=== PATIENT | female | born 1990 | race Caucasian/White ===

== ENCOUNTER 2021-06-19 09:20 | Outpatient (CLI) | payer OTHER, SELFPAY ==
--- NOTE | ~2021-06-19 | XR_ITS ---
EXAMINATION: XR chest 2V DATE: 06/19/2021 10:27 INDICATION: Shortness of breath TECHNIQUE: Frontal and lateral views of the chest are obtained COMPARISON: 05/06/2016 FINDINGS: The lungs are free of acute opacities. There is no pleural effusion or pneumothorax. The ca rdiomediastinal silhouette is normal. The visualized bones and soft tissues are unremarkable. IMPRESSION: 1. No acute cardiopulmonary abnormality. Reviewed, dictated and finalized at location A. MS REPRESENTATIVE
--- NOTE | 2021-06-19 09:24 | ECG_ITS ---
Measurements Intervals [place] Rate: 58 P: -33 NE: 121 QRS: 95 QRSD: 92 T: 53 QT: 422 QTc: 417 Interpretive Statements SINUS BRADYCARDIA WITH SHORT NE INTERVAL RIGHT AXIS DEVIATION MINIMAL Q WAVES- INF/LAT LEADS BASELINE ARTIFACT- II, III, AVR, AVL, AVF BORDERLINE ECG Electronically Signed On 06-19-2021 10:21:04 BAG MACHINE HELPER by Yaw Tracy D.O.
[2021-06-19 10:13] LABS: Basophils Absolute Auto 0.01 K/mm3 (0.00-0.10); Basophils Percent Auto 0.2 % (0.0-1.0); Eosinophils Absolute Auto 0.03 K/mm3 (0.02-0.50); Eosinophils Percent Auto 0.5 % (1.0-6.0); Hematocrit 42.9 % (35.0-49.0); Hemoglobin 14.5 g/dL (12.0-15.0); Immature Granulocyte Absolute 0.02 K/mm3 (0.00-0.00); Immature Granulocyte Percent A 0.3 % (0.0-0.0); Lymphocytes Absolute Auto 2.06 K/mm3 (1.10-4.50); Lymphocytes Percent Auto 31.1 % (18.0-42.0); Mean Corpuscular HGB Conc 33.8 g/dL (32.0-36.0); Mean Corpuscular Hemoglobin 33.1 pg (27.0-31.0); Mean Corpuscular Volume 97.9 fL (78.0-102.0); Mean Platelet Volume 10.8 fl (9.2-11.8); Monocytes Absolute Auto 0.46 K/mm3 (0.10-0.90); Monocytes Percent Auto 6.9 % (2.0-11.0); Neutrophils Absolute Auto 4.1 K/mm3 (1.7-7.2); Platelet Count Result 169 K/mm3 (150-420); Red Blood Count 4.38 M/mm3 (4.20-5.40); Red Cell Distribution Width 11.9 % (11.6-14.4); White Blood Count 6.6 K/mm3 (4.8-10.8)
[2021-06-19 10:28] LABS: Alanine Aminotransferase 22 U/L (14-59); Albumin Level 4.2 g/dL (3.4-5.0); Alkaline Phosphatase 45 U/L (46-116); Anion Gap 11 mmol/L (8-16); Aspartate Amino Transferase 16 U/L (15-37); Bilirubin,Total 0.9 mg/dL (0.00-1.00); Blood Urea Nitrogen 13 mg/dL (7-18); Calcium 8.7 mg/dL (8.5-10.1); Carbon Dioxide 25 mmol/L (21-32); Chloride 106 mmol/L (98-108); Estimated Glomerular Filt Rate > 60; Glucose 91 mg/dL (70-99); Osmolality Calculated 294 mOsm/kg (285-295); Potassium 4.1 mmol/L (3.5-5.1); Sodium 142 mmol/L (136-145); Total Protein 7.3 g/dL (6.4-8.2)
== END 2021-06-19 09:21 | disposition home or self-care (01) ==
LOC: CHSIMG 09:24
PROVIDERS: PCP Nurse Practitioner Family; Visit Provider Nurse Practitioner Family
DX: R06.00 Dyspnea, unspecified (principal)
CPT/HCPCS: 36415; 71046; 80053; 85025; 93005

== ENCOUNTER 2021-06-22 11:11 | Outpatient (CLI) | payer OTHER, SELFPAY ==
--- NOTE | 2021-06-23 16:46 | WPDHOLTEREM ---
Holter/Event Monitor Holter/Event Monitor Date of procedure: 06/22/21 Holter/Event Procedure: 24 Hr Holter Monitor Indications: Dyspnea, irregular heart beat Conclusion: 1. 24 hour holter monitor on 06/22/21. 2. Underlying rhythm is sinus rhythm. HR range 40-145 bpm; average HR 67 bpm. 3. There are 6 premature supraventricular complexes. No supraventricular tachycardia. 4. There are 5 premature ventricular complexes. No ventricular tachycardia. 5. No sinoatrial or atrioventricular blocks. There are 2 episodes of pauses greater than 2 seconds, the longest at 2.2 seconds at 03:49 and the other at 2.1 seconds at 06:42. 6. Patient reports symptoms of shortness of breath, chest tightness, fast heart beat which demonstrate sinus rhythm, HR range 60-82 bpm.
== END 2021-06-22 11:12 | disposition home or self-care (01) ==
PROVIDERS: PCP Internal Medicine; Visit Provider Nurse Practitioner Family
DX: R94.31 Abnormal electrocardiogram [ECG] [EKG] (principal); R06.00 Dyspnea, unspecified
CPT/HCPCS: 93225; 93226

== ENCOUNTER 2021-08-04 08:11 | Outpatient (CLI) | payer OTHER, SELFPAY ==
[2021-08-04 09:28] LABS: Cholesterol 180 mg/dL (0-200); HDL Direct 45 mg/dL (40-60); LDL Cholesterol Calculated 123 mg/dL (<130); Triglycerides 58 mg/dL (0-150)
== END 2021-08-04 08:12 | disposition home or self-care (01) ==
LOC: CHSLAB 08:12
PROVIDERS: PCP Nurse Practitioner Family; Visit Provider Internal Medicine Cardiovascular Disease
DX: R06.00 Dyspnea, unspecified (principal)
CPT/HCPCS: 36415; 80061

== ENCOUNTER 2021-08-21 14:32 | Outpatient (CLI) | payer OTHER, SELFPAY ==
--- NOTE | 2021-08-21 14:40 | ECHO_ITS ---
Patient Info Name: Shahnaz Shaikh Age: 31 years : 1990 Gender: Female Ht: 64 in Wt: 125 lbs BSA: 1.60 m2 HR: 62 bpm BP: 105 / 68 mmHg Technical Quality: Good Exam Date: 08/21/2021 2:55 PM Exam Location: [facility] Patient Status: Outpatient Admit Date: 08/21/2021 Staff Ordering Physician: Yaw Tracy DO Drawbench Operator Helper: Mikala Red RDCS Attending Provider: Yaw Tracy DO Referring Physician: Demarcus BERUMEN; Exam Type: CA echo doppler color flow Study Info Indications R06.00 - Dyspnea, unspecified Complete two-dimensional, color flow and Doppler transthoracic echocardiogram is performed. Summary 1. Complete two-dimensional, color flow and Doppler transthoracic echocardiogram is performed. 2. Left ventricular chamber dimension is normal. 3. Left ventricular systolic function is normal, estimated at 60-65%. 4. The left ventricular diastolic function is normal. 5. E/e' 5 is not elevated. 6. Global longitudinal strain is normal at -19.7%. 7. There is mild tricuspid valve regurgitation. 8. No pulmonary hypertension, estimated pulmonary arterial systolic pressure is 23 mmHg. Left Ventricle E/e' 5 is not elevated. Global longitudinal strain is normal at -19.7%. Left ventricular chamber dimension is normal. Left ventricular systolic function is normal, estimated at 60-65%. The left ventricular diastolic function is normal. Right Ventricle Right ventricular chamber dimension is normal. Right ventricular systolic function is normal. Left Atria Left atrial chamber dimension is normal. Right Atria Right atrial chamber dimension is normal. Aortic Valve The aortic valve is trileaflet. There is no aortic valve stenosis. There is no aortic valve regurgitation. Pulmonic Valve There is no pulmonic regurgitation. Mitral Valve There is no mitral valve stenosis. There is no mitral valve regurgitation. Tricuspid Valve There is mild tricuspid valve regurgitation. No pulmonary hypertension, estimated pulmonary arterial systolic pressure is 23 mmHg. Pericardium/Pleural There is no pericardial effusion. Inferior Vena Cava Normal inferior vena cava with >50% collapse upon inspiration consistent with normal right atrial pressure, 5 mmHg. Aorta The aortic root size at the sinus of Valsalva is normal. Left Ventricular Outflow Tract Name Value Normal LVOT 2D LVOT Diameter 2.0 cm LVOT Doppler LVOT Peak Gradient 3 mmHg LVOT Mean Gradient 2 mmHg LVOT VTI 19 cm LVOT VTI/AV VTI Ratio 0.8 LVOT Stroke Volume 59 ml LVOT CO 3.7 l/min LVOT CI 2.3 l/min/m2 Pulmonic Valve Name Value Normal RVOT Doppler RVOT Peak Gradien
== END 2021-08-21 14:33 | disposition home or self-care (01) ==
LOC: ANHCARD 14:34
PROVIDERS: PCP Nurse Practitioner Family; Visit Provider Internal Medicine Cardiovascular Disease
DX: R06.00 Dyspnea, unspecified (principal); I34.0 Nonrheumatic mitral (valve) insufficiency
CPT/HCPCS: 93306

== ENCOUNTER 2021-12-14 13:48 | Outpatient (CLI) | payer OTHER, SELFPAY ==
[2021-12-14 14:02] LABS: Hematocrit 41.2 % (35.0-49.0); Hemoglobin 13.7 g/dL (12.0-15.0); Mean Corpuscular HGB Conc 33.3 g/dL (32.0-36.0); Mean Corpuscular Hemoglobin 33.3 pg (27.0-31.0); Mean Corpuscular Volume 100.2 fL (78.0-102.0); Mean Platelet Volume 10.5 fl (9.2-11.8); Platelet Count Result 147 K/mm3 (150-420); Red Blood Count 4.11 M/mm3 (4.20-5.40); Red Cell Distribution Width 11.9 % (11.6-14.4); White Blood Count 9.2 K/mm3 (4.8-10.8)
[2021-12-14 14:20] LABS: Pregnancy On Board Control Positive; Urine Pregnancy Test Negative
[2021-12-14 14:22] LABS: Alanine Aminotransferase 16 U/L (14-59); Albumin Level 3.9 g/dL (3.4-5.0); Alkaline Phosphatase 44 U/L (46-116); Anion Gap 6 mmol/L (8-16); Aspartate Amino Transferase 10 U/L (15-37); Bilirubin,Total 0.7 mg/dL (0.00-1.00); Blood Urea Nitrogen 10 mg/dL (7-18); Calcium 9.1 mg/dL (8.5-10.1); Carbon Dioxide 28 mmol/L (21-32); Chloride 106 mmol/L (98-108); Estimated Glomerular Filt Rate > 60; Glucose 90 mg/dL (70-99); Lipase 54 U/L (73-393); Osmolality Calculated 289 mOsm/kg (285-295); Potassium 4.4 mmol/L (3.5-5.1); Sodium 140 mmol/L (136-145); Total Protein 7.5 g/dL (6.4-8.2)
[2021-12-14 14:26] LABS: Appearance Urine Clear (Clear); Bilirubin Urine Negative (Negative); Color Urine Light Yellow (Yellow); Glucose Urine UA Negative (Negative); Ketones Urine Negative (Negative); Leukocyte Esterase Ur Negative (Negative); Nitrate Urine Negative (Negative); Protein Urine Negative (Negative); Urobilinogen Urine 0.2 mg/dL (0.2-1.0)
[2021-12-14 14:35] LABS: Add Urine Microscopic? YES; Bacteria Urine None seen /hpf; Blood Urine Trace-Intact (Negative); RBC Urine 0-2 /hpf (0-2); Squamous Epithelial Cell Urine Few /hpf (Few); WBC Urine 0-3 /hpf (0-3)
== END 2021-12-14 13:49 | disposition home or self-care (01) ==
LOC: CHSLAB 13:50
PROVIDERS: PCP Nurse Practitioner Family; Visit Provider Family Medicine
DX: R10.9 Unspecified abdominal pain (principal)
CPT/HCPCS: 36415; 80053; 81001; 81025; 83690; 85027

== ENCOUNTER 2021-12-15 09:35 | Outpatient (CLI) | payer OTHER, SELFPAY ==
--- NOTE | ~2021-12-15 | US_ITS ---
US right upper quadrant INDICATION: Abdomen pain for 4 days PROCEDURE: Realtime right upper abdominal ultrasound. COMPARISON: No prior studies for comparison. FINDINGS: The pancreas is normal without focal mass or pancreatic ductal dilation. Liver echotexture is normal without focal mass or intrahepatic biliary dilatation. There is normal directional flow i n the portal vein. The gallbladder is normal without stones, gallbladder wall thickening or pericholecystic fluid. Comm on bile duct measures 3 mm. No sonographic Penaloza's sign. IMPRESSION: 1: Normal limited abdominal ultrasound. Reviewed, dictated and finalized at location A.
== END 2021-12-15 09:36 | disposition home or self-care (01) ==
LOC: CHSIMG 09:39
PROVIDERS: PCP Nurse Practitioner Family; Visit Provider Family Medicine
DX: R10.9 Unspecified abdominal pain (principal)
CPT/HCPCS: 76705

== ENCOUNTER 2022-02-01 08:57 | Outpatient (CLI) | payer OTHER, SELFPAY ==
[2022-02-01 09:46] LABS: Cholesterol 172 mg/dL (0-200); HDL Direct 48 mg/dL (40-60); LDL Cholesterol Calculated 107 mg/dL (<130); Triglycerides 87 mg/dL (0-150)
[2022-02-01 09:49] LABS: CRP < 0.2 mg/dL (0.0-0.9)
== END 2022-02-01 08:58 | disposition home or self-care (01) ==
LOC: CHSLAB 09:00
PROVIDERS: Family Medicine; PCP Nurse Practitioner Family; Visit Provider Internal Medicine Cardiovascular Disease
DX: R10.9 Unspecified abdominal pain (principal); R59.1 Generalized enlarged lymph nodes
CPT/HCPCS: 36415; 80061; 86140

== ENCOUNTER 2022-02-05 15:10 | Outpatient (CLI) | payer OTHER, SELFPAY ==
--- NOTE | 2022-02-05 15:16 | ECG_ITS ---
Measurements Intervals [place] Rate: 54 P: 48 SC: 139 QRS: 83 QRSD: 88 T: 59 QT: 434 QTc: 413 Interpretive Statements SINUS BRADYCARDIA BORDERLINE ECG Electronically Signed On 02-05-2022 15:31:23 CDT by Yaw Tracy D.O.
== END 2022-02-05 15:11 | disposition home or self-care (01) ==
LOC: CHSIMG 15:12
PROVIDERS: PCP Nurse Practitioner Family; Visit Provider Internal Medicine Cardiovascular Disease
DX: R94.31 Abnormal electrocardiogram [ECG] [EKG] (principal)
CPT/HCPCS: 93005

== ENCOUNTER 2022-02-06 13:17 | Outpatient (CLI) | payer OTHER, SELFPAY ==
[2022-02-06 14:24] LABS: SARS-CoV-2 RNA PCR Negative (Negative)
== END 2022-02-06 13:18 | disposition home or self-care (01) ==
LOC: CHSLAB 13:27
PROVIDERS: PCP Nurse Practitioner Family
DX: Z01.818 Encounter for other preprocedural examination (principal); Z20.822 Contact with and (suspected) exposure to COVID-19
CPT/HCPCS: C9803; U0003; U0005

== ENCOUNTER 2022-05-25 08:04 | Outpatient (CLI) | payer OTHER, SELFPAY ==
--- NOTE | ~2022-05-25 | US_ITS ---
EXAMINATION: US pelvic complete w TV DATE: 05/25/2022 11:17 INDICATION: Pelvic pain, history of endometrial ablation TECHNIQUE: Multiple transabdominal and endovaginal sonographic images of the pelvis were obtained. COMPARISON: None. FINDINGS: The uterus measures 7.7 x 4.1 x 3.9 cm. The endometrial complex measures 6 mm. The right ov alena measures 3.1 x 2.6 x 2.1 cm. The left ovary measures 2.9 x 2.6 x 1.8 cm. There is normal vascular flow in the ovaries. There is no free fluid in the pelvis. IMPRESSION: 1. No sonographic correlate for the patient's symptoms. Reviewed, dictated and finalized at location B. Y PLAN SALES DIRECTOR
== END 2022-05-25 08:05 | disposition home or self-care (01) ==
LOC: CHSIMG 08:08
PROVIDERS: PCP Nurse Practitioner Family
DX: R10.2 Pelvic and perineal pain (principal)
CPT/HCPCS: 76830; 76856

== ENCOUNTER 2022-08-30 16:53 | Emergency (ER) | payer OTHER, SELFPAY ==
--- NOTE | ~2022-08-30 | XR_ITS ---
XR ankle RT min 3V 08/30/2022 17:14 INDICATION: Right ankle pain PROCEDURE: 4 views right ankle COMPARISON: No prior studies for comparison. FINDINGS: Fracture, dislocation or subluxation is not identified. The soft tissues appear within norm al limits. No foreign bodies are identified. IMPRESSION: 1: NO ACUTE BONE OR JOINT ABNORMALITY IDENTIFIED. Reviewed, dictated and finalized at location A. ORADIOLOGIST
[2022-08-30 17:02] VITALS: BP 125/66; PULSE 73; RESP 16; TEMP 36.8; O2SAT 100
--- NOTE | 2022-08-30 17:02 | ED.LOWEXIN ---
HPI - Extremity Injury (Lower) General Chief Complaint: Extremity Injury, Lower Stated Complaint: R ANKLE INJURY Time Seen by Provider: 08/30/22 17:02 Source: patient and RN notes reviewed History of Present Illness HPI Narrative: Patient is a 32-year-old female presents to urgent care with complaints of right ankle pain. Patient states that on August 19 she was jumping on a trampoline and landed wrong. Patient states she is now having issues with ambulation. Patient states that most specifically when she has pressure to her instep she feels the pain into the ankle. Patient has been taking Tylenol and then the elevated. No other acute complaints. No acute distress noted. Patient aware of the plan of care. Some parts of this dictation were generated by voice recognition software and may contain typographical and/or grammatical inaccuracies. Related Data Home Medications Medication Instructions Recorded Confirmed buspirone 10 mg tablet 10 mg PO BID 12/14/21 02/05/22 Allergies Allergy/AdvReac Type Severity Reaction Status Date / Time No Known Allergies Allergy Verified 02/05/22 14:54 Review of Systems Review of Systems: CONSTITUTIONAL: Denies fever, chills, or sweats. EYES: Denies visual changes, redness, or discharge. ENT: Denies rhinorrhea, congestion, sore throat, or otalgia. CARDIOVASCULAR: Denies chest pain, palpitations, or edema. RESPIRATORY: Denies cough or dyspnea. GASTROINTESTINAL: Denies abdominal pain, nausea, vomiting, or diarrhea. GENITOURINARY: Denies dysuria or hematuria. SKIN: Denies rash or itching. MUSCULOSKELETAL: Reports of right ankle pain and swelling NEUROLOGIC: Denies headache, numbness, or weakness. All other systems reviewed are negative, except as documented in HPI. [facility], LATER [facility] Past Medical History Medical History Migraine Twisting of colon on long axis Surgical History Surgical History History of mandibular surgery History of tubal ligation Social History Social History Social History: quit 13 years ago, 1.5 PPD x 4 years prior Smoking packs per day: 1.5 Smoking cigarettes per day: 30.0 Years smoked: 4 Smoking pack-years: 6.00 Smoking status: Former smoker Alcohol intake: current Alcohol use details: social Substance use: current Substance use type: marijuana Living arrangements: with family Additional living arrangements comments: Boyfriend and 2 children Gender identity (if verbalized by the patient): Female Comments At the time of my signature, I reviewed and agree with the nursing past medical, surgical, social, and family history. There is no relevant family history pertinent to the patient complaint. Exam Narrative: GENERAL: This is a well-nourished, well-developed patient, in no apparent distress. HEAD: normocephalic, atraumatic. EYES: PERRL. Sclera clear/white. Vision is grossly intact. EARS: External ears normal NOSE: External nose normal with no obvious nasal discharge, nares without redness, no rhinorrhea. THROAT: Mucous membranes moist NECK: Neck supple SKIN: warm, intact with no suspicious lesions or rash, good texture and turgor. NEURO: awake, alert, and oriented to person, place and time. There were no obvious focal neurologic abnormalities. EXTREMITIES: Mild edema and tenderness to the medial aspect of the right malleolus. Range of motion within normal limits to right lower extremity. Positive strong right radial pulse with capillary refill less than 2 seconds. Course Course Level of Care: Express Care Visit Vital Signs Vital signs: Vital Signs Temperature 98.2 F 08/30/22 17:02 Pulse Rate 73 08/30/22 17:02 Respiratory Rate 16 08/30/22 17:02 Blood Pressure 125/66 08/30/22 17:02 Pulse Oximetry 100 08/30/22 17:02 Oxygen Delivery Room Air 0
== END 2022-08-30 17:28 | disposition home or self-care (01) ==
PROVIDERS: Emergency Provider Nurse Practitioner Family
DX: S93.401A Sprain of unspecified ligament of right ankle, initial encounter (principal); S96.911A Strain of unspecified muscle and tendon at ankle and foot level, right foot, initial encounter; X50.9XXA Other and unspecified overexertion or strenuous movements or postures, initial encounter; Y93.44 Activity, trampolining; Z87.891 Personal history of nicotine dependence; F12.90 Cannabis use, unspecified, uncomplicated
CPT/HCPCS: 73610; 99213; G0463

== ENCOUNTER 2023-01-07 11:05 | Outpatient (CLI) | payer OTHER, SELFPAY ==
--- NOTE | ~2023-01-07 | XR_ITS ---
EXAMINATION: XR soft tissue neck INDICATION: Lump sensation in the left neck TECHNIQUE: Two views of the neck soft tissues are obtained. COMPARISON: None available FINDINGS: No radiographic correlate is identified for the patient's reported lump sensation of the le ft neck. The neck soft tissues appear unremarkable. There is mild lower cervical spondylosis. The vis ualized portions of the lung apices are unremarkable. IMPRESSION: 1. No radiographic correlate for the patient's symptoms. Consider further evaluation with ultrasound or CT. Reviewed, dictated and finalized at location [] IMPRESSION: 1. No radiographic correlate for the patient's symptoms. Consider further evalu ation with ultrasound or CT.
[2023-01-07 11:28] LABS: Basophils Absolute Auto 0.02 K/mm3 (0.00-0.10); Basophils Percent Auto 0.4 % (0.0-1.0); Eosinophils Absolute Auto 0.03 K/mm3 (0.02-0.50); Eosinophils Percent Auto 0.6 % (1.0-6.0); Hematocrit 42.2 % (35.0-49.0); Hemoglobin 14.3 g/dL (12.0-15.0); Immature Granulocyte Absolute 0.02 K/mm3 (0.00-0.00); Immature Granulocyte Percent A 0.4 % (0.0-0.0); Lymphocytes Absolute Auto 2.15 K/mm3 (1.10-4.50); Lymphocytes Percent Auto 40.5 % (18.0-42.0); Mean Corpuscular HGB Conc 33.9 g/dL (32.0-36.0); Mean Corpuscular Hemoglobin 33.6 pg (27.0-31.0); Mean Corpuscular Volume 99.1 fL (78.0-102.0); Mean Platelet Volume 10.4 fl (9.2-11.8); Monocytes Absolute Auto 0.42 K/mm3 (0.10-0.90); Monocytes Percent Auto 7.9 % (2.0-11.0); Neutrophils Absolute Auto 2.7 K/mm3 (1.7-7.2); Neutrophils Percent Auto 50.2 % (50.0-70.0); Platelet Count Result 152 K/mm3 (150-420); Red Blood Count 4.26 M/mm3 (4.20-5.40); Red Cell Distribution Width 11.8 % (11.6-14.4); White Blood Count 5.3 K/mm3 (4.8-10.8)
[2023-01-07 12:42] LABS: Free T4 Free Thyroxine 0.94 ng/dL (0.76-1.46); Thyroid Stimulating Hormone 0.98 uIU/mL (0.36-3.74)
== END 2023-01-07 11:06 | disposition home or self-care (01) ==
LOC: CHSLAB 11:07
PROVIDERS: PCP Nurse Practitioner Family; Visit Provider Nurse Practitioner Family
DX: R53.83 Other fatigue (principal); R22.1 Localized swelling, mass and lump, neck
CPT/HCPCS: 36415; 70360; 84439; 84443; 85025

== ENCOUNTER 2023-04-24 02:46 | Day surgery (SDC) | payer OTHER, SELFPAY ==
[2023-04-12 15:27] VITALS: BMI 20.6
[2023-04-24 11:15] VITALS: BP 102/64; PULSE 61; RESP 16; TEMP 36.4; O2SAT 100
[2023-04-24] MEDS: LACTATED RINGERS 1,000 ML 150 ML IV CONT (11:34)
--- NOTE | 2023-04-24 11:35 | WPDANESEPPF ---
Anes - Initial Pre Proc Eval Procedure: Operation Date: 04/24/23 12:30 Proposed Procedures p Esophagogastroduodenoscopy & Colonoscopy - Lex Cisneros MD Date/Time: 04/24/23 11:35 Surgeon: Lex Cisneros MD Pre Op Diagnosis: GERD, abdominal pain Patient Data Age: 33 Gender: F Height: 1.63 m Weight: 52.8 kg Last Vital Signs Temp 97.5 F L 04/24/23 11:15 Pulse 61 04/24/23 11:15 Resp 16 04/24/23 11:15 BP 102/64 04/24/23 11:15 Pulse Ox 100 04/24/23 11:15 O2 Del Method Room Air 04/24/23 11:15 Allergies Allergy/AdvReac Type Severity Reaction Status Date / Time No Known Allergies Allergy Verified 04/24/23 11:22 Home Medications Medication Instructions Recorded Confirmed Type dicyclomine 20 mg tablet 20 mg PO TID PRN abdominal pain 04/10/23 04/24/23 Rx #90 tabs hydrocortisone 2.5 % topical cream 1 applic RECTAL DAILY PRN 04/10/23 04/24/23 Rx with perineal applicator hemorrhoids #30 grams Patient hx anesthesia problems: none Family hx anesthesia problems: none Results Review: All pre-operative results and documents have been reviewed as part of the pre-operative evaluation. [facility] Past Medical History Medical History Migraine Twisting of colon on long axis Surgical History Surgical History History of mandibular surgery History of tubal ligation Social History Social History Social History: quit 13 years ago, 1.5 PPD x 4 years prior Smoking packs per day: 1.5 Smoking cigarettes per day: 30.0 Years smoked: 4 Smoking pack-years: 6.00 Smoking status: Former smoker Tobacco type: cigarettes Alcohol intake: current Alcohol use details: 2-3X monthly Substance use: current Substance use type: marijuana Last use: Daily Lack of Transportation: No Lack of Food: Never True Current Housing: I Have Housing Concerned About Future Housing: No Difficulty Paying Gas/Electric Bills: No Difficulty Paying for Meds: No Currently Unemployed: No Education: High School Diploma/GED Living arrangements: with family Additional living arrangements comments: Boyfriend and 2 children Gender identity (if verbalized by the patient): Female Spiritual care concerns: No Anes - Eval Final PreProcedure Day of Procedure 04/24/23 11:35 Patient weight: normal Heart: regular rate and rhythm Lungs: clear to auscultation Airway: Mallampati scale class II Neurological: alert and oriented Last oral intake: >/= 8 hours ASA classification: II Emergent: no Anesthetic plan: proceed Anesthesia type and monitoring: general GIVS and standard monitoring Results Review: All pre-operative results and documents have been reviewed as part of the pre-operative evaluation. Informed Consent: The patient's anesthetic plan and its attendant risks and benefits were discussed with the patient/family/POA. Questions were solicited and answers provided to the satisfaction of the patient/family/POA.
--- NOTE | 2023-04-24 12:00 | WPDHPUPDATE1 ---
History and Physical Update Update Date/Time: 04/24/23 12:00 History and Physical has been reviewed, including an updated exam of the patient. There are NO changes in the patient's condition. Risks, benefits, and alternatives have been discussed and questions answered. Patient agrees to proceed with procedure.
[2023-04-24] MEDS: BENZOCAINE (*SP) 60 ML SPRAY CAN (HURRICAINE) 1 SPRAY MUCOUS MEM (12:06)
[2023-04-24 12:29] VITALS: BP 89/51; PULSE 65; RESP 23; O2SAT 96
--- NOTE | 2023-04-24 12:29 | SUR.OPER ---
EGD START 1209, END 1213 COLONOSCOPY START 1217, END 1227
[2023-04-24 12:39] VITALS: BP 121/79; PULSE 120; RESP 24; O2SAT 99
[2023-04-24 12:49] VITALS: BP 101/80; PULSE 80; RESP 17; O2SAT 100
== END 2023-04-24 12:59 | disposition home or self-care (01) ==
PROVIDERS: PCP Nurse Practitioner Family; Visit Provider Internal Medicine Gastroenterology
PROC: 0DJ08ZZ Inspection of Upper Intestinal Tract, Via Natural or Artificial Opening Endoscopic (ICD-10-PCS; CPT 43235; principal; 2023-04-24 12:30)
DX: R10.9 Unspecified abdominal pain (principal); K21.9 Gastro-esophageal reflux disease without esophagitis; Z87.891 Personal history of nicotine dependence; F12.90 Cannabis use, unspecified, uncomplicated
CPT/HCPCS: 43239; 45378; 88305; J2704; J7120

== ENCOUNTER 2023-06-06 10:18 | Emergency (ER) | payer OTHER, SELFPAY ==
--- NOTE | ~2023-06-06 | XR_ITS ---
EXAMINATION: XR lumbar spine 2-3V DATE: 06/06/2023 11:22 INDICATION: Low back pain TECHNIQUE: Anteroposterior and lateral views of the lumbar spine, and cone-down lateral view of the l umbosacral junction were obtained. COMPARISON: None. FINDINGS: No fracture, dislocation, or subluxation. The vertebral body heights, alignment, and interv ertebral disc spaces are normal. The paravertebral soft tissues are unremarkable. IMPRESSION: 1. No acute osseous abnormality. Reviewed, dictated and finalized at location F. CARE WORKER
[2023-06-06 10:18] VITALS: BP 100/65; PULSE 74; RESP 16; TEMP 36.2; O2SAT 99
--- NOTE | 2023-06-06 10:31 | ED.GENADULT ---
HPI - General Adult General Chief complaint: Back Pain/Injury Stated complaint: back pain Time Seen by Provider: 06/06/23 10:26 History of Present Illness HPI narrative: Shahnaz is a 33F with a history of GERD and IBS that presented to the ED with back pain that started this morning when she woke up. There was no fall or trauma. it is worse with movement and better with rest. No numbness/weakness or loss of bowel/bladder control. The pain is bilateral just superior to her sacrum. Related Data Allergies Allergy/AdvReac Type Severity Reaction Status Date / Time No Known Allergies Allergy Verified 06/06/23 10:28 Review of Systems Review of Systems: All systems reviewed & are unremarkable except as noted in HPI and below PMFSH Past Medical History Medical History Migraine Twisting of colon on long axis Surgical History Surgical History History of mandibular surgery History of tubal ligation Social History Social History Social History: quit 13 years ago, 1.5 PPD x 4 years prior Smoking packs per day: 1.5 Smoking cigarettes per day: 30.0 Years smoked: 4 Smoking pack-years: 6.00 Smoking status: Former smoker Tobacco type: cigarettes Alcohol intake: current Alcohol use details: 2-3X monthly Substance use: current Substance use type: marijuana Last use: Daily Lack of Transportation: No Lack of Food: Never True Current Housing: I Have Housing Concerned About Future Housing: No Difficulty Paying Gas/Electric Bills: No Difficulty Paying for Meds: No Currently Unemployed: No Education: High School Diploma/GED Living arrangements: with family Additional living arrangements comments: Boyfriend and 2 children Gender identity (if verbalized by the patient): Female Spiritual care concerns: No Exam Const: General: cooperative, healthy appearing, comfortable, no acute distress, well developed, alert, awake and Physically active Orientation/consciousness: oriented to person, oriented to place and oriented to time HENMT: Head: normal to inspection, normocephalic and atraumatic Ears: hearing grossly normal bilaterally and external ears normal Face/Nose/Sinus: Normal external nose present Eyes: General: appearance normal, both eyes and all related structures Periorbital: periorbital findings normal Sclera: sclerae normal Pupils: Equal, round and reactive pupils present Neck: Neck: normal visual inspection Chest: Chest palpation & inspection: normal inspection of the chest Resp: Effort & Inspection: normal respiratory effort, able to speak in complete sentences and no respiratory distress Cardio: Jugular venous distension: no JVD Back/Spine/Pelvis: Other: No TTP of the back. Lumbar paraspinal muscles are hypertonic. Pain worse with lumbar flexion. Skin: General skin exam: normal color and no rashes or lesions noted Neuro: General: oriented to person, oriented to place and oriented to time Cranial nerves: Yes Equal, round and reactive pupils present Extrem: General: normal to inspection Course Course Emergency Course: ordered radiographs, UA toradol and cyclobenzaprine EXAMINATION: XR lumbar spine 2-3V DATE: 06/06/2023 11:22 INDICATION: Low back pain TECHNIQUE: Anteroposterior and lateral views of the lumbar spine, and cone-down lateral view of the lumbosacral junction were obtained. COMPARISON: None. FINDINGS: No fracture, dislocation, or subluxation. The vertebral body heights, alignment, and intervertebral disc spaces are normal. The paravertebral soft tissues are unremarkable. IMPRESSION: 1. No acute osseous abnormality. Vital Signs Vital signs: Vital Signs Temperature 97.2 F L 06/06/23 10:18 Pulse Rate 74 06/06/23 10:18 Respiratory Rate 16 06/06/23 10:18 Blood Pressure 100/65 11
[2023-06-06] MEDS: CYCLOBENZAPRINE HCL 10 MG TABLET PO (10:38)
[2023-06-06] MEDS: KETOROLAC 30 MG/ML VIAL (*BKC) IM (10:38)
[2023-06-06 10:57] LABS: Appearance Urine Clear (Clear); Bilirubin Urine Negative (Negative); Blood Urine Trace-Intact (Negative); Color Urine Light Yellow (Yellow); Glucose Urine UA Negative (Negative); Ketones Urine Negative (Negative); Leukocyte Esterase Ur Negative (Negative); Nitrate Urine Negative (Negative); Protein Urine Negative (Negative); Specific Grav Ur 1.015 (1.010-1.020); Urobilinogen Urine 0.2 mg/dL (0.2-1.0); pH Urine 6.5 (5.0-8.0)
[2023-06-06 11:00] LABS: Add Urine Microscopic? YES; Bacteria Urine Trace /hpf; Mucus Urine Moderate /lpf; RBC Urine 0-2 /hpf (0-2); Squamous Epithelial Cell Urine Moderate /hpf (Few); WBC Urine None seen /hpf (0-3)
[2023-06-06 11:00] LABS: Pregnancy On Board Control Positive; Urine Pregnancy Test Negative
[2023-06-06 11:45] VITALS: BP 101/58; PULSE 70; RESP 20; TEMP 36.7; O2SAT 99
== END 2023-06-06 11:53 | disposition home or self-care (01) ==
PROVIDERS: Emergency Provider Family Medicine; PCP Nurse Practitioner Family
DX: M54.50 Low back pain, unspecified (principal); Z87.891 Personal history of nicotine dependence
CPT/HCPCS: 72100; 81001; 81025; 96372; 99283; A9270; J1885

== ENCOUNTER 2024-03-18 12:13 | Outpatient (CLI) | payer OTHER, SELFPAY ==
[2024-03-18 12:33] LABS: Basophils Absolute Auto 0.01 K/mm3 (0.00-0.10); Basophils Percent Auto 0.1 % (0.0-1.0); Eosinophils Absolute Auto 0.02 K/mm3 (0.02-0.50); Eosinophils Percent Auto 0.3 % (1.0-6.0); Hemoglobin 13.7 g/dL (12.0-15.0); Immature Granulocyte Absolute 0.01 K/mm3 (0.00-0.00); Immature Granulocyte Percent A 0.1 % (0.0-0.0); Lymphocytes Absolute Auto 2.35 K/mm3 (1.10-4.50); Lymphocytes Percent Auto 34.7 % (18.0-42.0); Mean Corpuscular HGB Conc 34.3 g/dL (32-36); Mean Corpuscular Hemoglobin 33.3 pg (27.0-31.0); Mean Corpuscular Volume 97.1 fL (78.0-102.0); Mean Platelet Volume 10.3 fl (9.2-11.8); Monocytes Absolute Auto 0.48 K/mm3 (0.10-0.90); Monocytes Percent Auto 7.1 % (2.0-11.0); Neutrophils Percent Auto 57.7 % (50.0-70.0); Platelet Count Result 153 K/mm3 (150-420); Red Blood Count 4.12 M/mm3 (4.20-5.40); Red Cell Distribution Width 11.9 % (11.6-14.4); White Blood Count 6.8 K/mm3 (4.8-10.8)
[2024-03-20 04:19] LABS: Vitamin D 25 Hydroxy 24 ng/mL (30-100)
[2024-03-20 09:57] LABS: Alanine Aminotransferase 13 U/L (6-35); Albumin Level 4.2 g/dL (3.5-5.1); Alkaline Phosphatase 36 U/L (38-126); Anion Gap 8 mmol/L (4-12); Aspartate Amino Transferase 20 U/L (14-36); Bilirubin,Total 0.8 mg/dL (0.2-1.3); Blood Urea Nitrogen 11 mg/dL (7-17); Carbon Dioxide 26 mmol/L (22-30); Chloride 107 mmol/L (98-107); Estimated Glomerular Filt Rate > 60; Glucose 87 mg/dL (65-110); Iron 159 ug/dL (37-170); Osmolality Calculated 290 mOsm/kg (285-295); Potassium 4.2 mmol/L (3.4-5.0); Sodium 141 mmol/L (137-145)
== END 2024-03-18 12:14 | disposition home or self-care (01) ==
PROVIDERS: PCP Nurse Practitioner Family; Visit Provider Nurse Practitioner Family
DX: R53.83 Other fatigue (principal); Z79.899 Other long term (current) drug therapy
CPT/HCPCS: 36415; 80053; 82306; 82728; 83540; 85025